=== PATIENT | female | born 1955 | race Caucasian/White ===

== ENCOUNTER 2020-05-09 04:22 | Emergency (ER) | payer SELFPAY ==
[~2020-05-09] VITALS: Ht 152.4 cm; Wt 114.0 kg
[2020-05-09 04:28] VITALS: BP 112/91
== END 2020-05-09 04:38 | disposition expired ==
LOC: ER 04:22
DX: I46.9 Cardiac arrest, cause unspecified (principal)
CPT/HCPCS: 31500; 99285